=== PATIENT | male | born 1940 | race Caucasian/White ===

== ENCOUNTER 2018-12-31 10:54 | Inpatient (IN) ==
--- NOTE | 2018-12-31 11:51 | Diag Imaging Result Doc PS360 ---
CHEST-PORTABLE - 12/31/2018 INDICATION: syncope COMPARISON: None FINDINGS: Lung volumes are very low. There is some nonspecific atelectasis in the lung bases. Heart size is probably top normal. IMPRESSION: Nonspecific findings. Electronically signed by Tommy Wells 12/31/2018 11:49 AM
[2018-12-31 12:38] LABS: BASO# 0.01 X1000 (0.0-0.2); BASO% 0.2 % (0.0-0.8); EOS# 0.17 X1000 (0.0-0.7); EOS% 3.3 % (0.0-10.0); HEMATOCRIT 38.1 % (42.0-52.0); HEMOGLOBIN 12.7 g/dL (14.0-18.0); LYMPH# 0.97 X1000 (1.2-3.4); LYMPH% 18.7 % (20.5-51.1); MCH 31.4 PG (27-31); MCHC 33.3 g/dL (33-37); MCV 94.3 FL (81-99); MONO# 0.36 X1000 (0.11-0.59); MONO% 6.9 % (1.7-9.3); MPV 9.7 FL (7.4-10.4); NEUT# 3.69 X1000 (1.4-6.5); NEUT% 70.9 % (42.2-75.2); PLT 204 X1000 (130-400); RBC 4.04 XMIL (4.7-6.1); RDW 13.2 % (11.5-14.5)
[2018-12-31 12:51] LABS: INR 0.97; PROTIME 13.6 Seconds (11.0-16.0)
[2018-12-31 12:52] LABS: PTT 33.9 Seconds (22.3-41.8)
[2018-12-31 12:59] LABS: ALB/GLOB RATIO 1.7; ALBUMIN 3.9 g/dL (3.5-5.0); CALCIUM 8.7 mg/dL (8.8-10.2); CREATININE 1.9 mg/dL (0.7-1.2); POTASSIUM 4.7 mmol/L (3.5-5.1); TOTAL BILIRUBIN 0.51 mg/dL (0.20-1.00); TOTAL PROTEIN 6.2 g/dL (6.3-8.3)
--- NOTE | 2018-12-31 14:11 | EKG Report ---
Test Performed on : 12/31/2018 12:13:49 PM Test Reason : sync Blood Pressure : / mmHG Vent. Rate : 062 BPM Atrial Rate : 062 BPM P-R Int : 192 ms QRS Dur : 098 ms QT Int : 430 ms P-R-T Axes : 002 -31 -24 degrees QTc Int : 436 ms Normal sinus rhythm. Left axis deviation Moderate voltage criteria for LVH, may be normal variant Abnormal ECG When compared with ECG of 22-NOV-2009 21:04, Inverted T waves have replaced nonspecific T wave abnormality in Inferior leads Unconfirmed Result
--- NOTE | 2018-12-31 15:44 | Diag Imaging Result Doc PS360 ---
EXAM: CT HEAD/C-SPINE W/O CONTRAST INDICATION: head injury/pain TECHNIQUE: This exam was performed using automated exposure control, adjustment of mA or kV according to patient size, and/or use of iterative reconstruction technique. COMPARISON: None. FINDINGS: Head: There is age-appropriate diffuse brain atrophy. There is no definite acute infarct given the limited sensitivity of CT versus MRI. There is no discrete intracranial mass, mass effect, or intracranial hemorrhage. There is suggestion of minimal scalp edema anteriorly on the left. The calvaria is intact. C-spine: There is advanced multilevel degenerative disc disease with loss of disc space height and marginal osteophyte formation. It is most significant at C3-4 where there is fairly severe central stenosis and at least moderate bilateral foraminal stenosis. There is also degenerative facet arthropathy throughout the cervical spine. Otherwise, there is no discrete fracture, subluxation, or intrinsic osseous lesion. The surrounding soft tissues are essentially unremarkable. IMPRESSION: 1.Age-appropriate mild brain atrophy. No evidence of acute intracranial pathology. 2.Advanced multilevel degenerative arthropathy throughout the cervical spine. No evidence of fracture or other definite acute C-spine injury. Electronically signed by Dennis Valadez 12/31/2018 3:41 PM
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
[2018-12-31] MEDS ORDERED: TYLENOL PO PRN (16:41)
[2018-12-31] MEDS ORDERED: NS 1,000 ML IV ONE (16:41)
[2018-12-31] MEDS ORDERED: ZOFRAN IV PRN (16:41)
[2019-01-01 05:51] LABS: URINE SOURCE CLEAN CATCH
[2019-01-01 06:04] LABS: BILIRUBIN URINE NEGATIVE (NEGATIVE); BLOOD URINE NEGATIVE (NEGATIVE); COLOR YELLOW; GLUCOSE URINE NEGATIVE (NEGATIVE); KETONE URINE NEGATIVE (NEGATIVE); LEUKOCYTES URINE NEGATIVE (NEGATIVE); NITRITE URINE NEGATIVE (NEGATIVE); PROTEIN URINE TRACE mg/dL (NEGATIVE); SP GRAVITY URINE 1.021; TURBIDITY URINE CLEAR (CLEAR); UROBILINOGEN URINE NORMAL (NORMAL)
[2019-01-01 06:05] LABS: UR EPITHELIAL CELLS <10 /HPF (<10); URINE BACTERIA NEGATIVE /HPF; URINE RBC <10 /HPF (<10); URINE WBC <10 /HPF (<10)
[2019-01-01 06:09] LABS: UR AMPHETAMINES QUAL NONE DETECTED (NONE DETECT); UR BARBITUATES QUAL NONE DETECTED (NONE DETECT); UR BENZODIAZEPIN QUAL NONE DETECTED (NONE DETECT); UR CANNABINOIDS QUAL NONE DETECTED (NONE DETECT); UR COCAINE QUAL NONE DETECTED (NONE DETECT); UR METHADONE QUAL NONE DETECTED (NONE DETECT); UR OPIATES QUAL NONE DETECTED (NONE DETECT); UR OXYCODONE QUAL NONE DETECTED (NONE DETECT); UR PCP QUAL NONE DETECTED (NONE DETECT)
[2019-01-01 08:06] VITALS: BP 145/66
[2019-01-01] MEDS ORDERED: NORVASC PO SCH (09:00)
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
[2019-01-01] MEDS ORDERED: MIRAPEX PO SCH (21:00)
[2019-01-01] MEDS ORDERED: NEURONTIN PO SCH (21:00)
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
--- NOTE | 2019-01-05 15:06 | Carotid Study ---
DATE: 01/01/2019 PROCEDURE: Bilateral carotid duplex. REFERRING PHYSICIAN: Dr. Sotelo. INTERPRETING PHYSICIAN: Dr. Nasir Bartholomew. TECH: [place]. INDICATIONS: Syncope. OBSERVED DATA RIGHT LEFT Brachial Blood Pressure Carotid Pulse Bruits: Carotid/Sub DIAGRAM OF ULTRASOUND IMAGING R L RIGHT INT EXT INT EXT LEFT Vladislav (cm/s) Vladislav (cm/s) Subclavian 94/0 Subclavian 54/0 CCA Proximal 64/15 CCA Proximal 113/13 CCA Distal 60/14 CCA Distal 58/19 Bulb 102/17 Bulb 56/12 ICA Proximal 52/11 ICA Proximal 140/12 ICA Mid 51/15 ICA Mid 158/16 ICA Distal 44/14 ICA Distal 66/23 ECA 85/5 ECA 66/4 Vertebral 39/8 A Vertebral 31/9 A ICA/CCA Ratio 0.82 ICA/CCA Ratio 0.59 % Stenosis 0-39% % Stenosis 0-39% FINDINGS: No significant atherosclerotic changes noted in the right. In the left, there is a broad based plaque in the carotid bulb that does not cause turbulence of flow or elevation of velocities and would correlate to a mild stenosis. SUMMARY: Mild stenosis of the left carotid artery. cc: MD Dusty Hammond MD
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
== END 2019-01-01 10:33 | disposition home or self-care (01) | DRG 312 ==
LOC: SUPCPDRO → ED 10:54 → 3N 17:02
PROVIDERS: ADMIT Internal Medicine; ATTEND Internal Medicine
CPT/HCPCS: 70450; 71010; 71045; 71250; 72125; 74176; 80053; 80101; 80301; 80307; 80324; 80345; 80346; 80353; 80358; 80361; 80365; 81001; 82550; 82948; 83880; 83992; 84484; 85025; 85610; 85730; 93005; 93880; 94761; 99285; A9270; G0431; G0434; G0479; G0480; J7030; XXXXX